=== PATIENT | male | born 1995 | race African-American/Black ===

== ENCOUNTER 2024-10-28 04:02 | Emergency (ER) | payer OTHER ==
[2024-10-28] MEDS ORDERED: Lidocaine 1% PF 5 ML VIAL ONE (04:34)
[2024-10-28] MEDS ORDERED: Boostrix 0.5 ML (Tdap) VIAL (>/=7 yrs of age) ONE (04:38)
[2024-10-28] MEDS ORDERED: Cephalexin 500 MG CAP ONE (04:48)
[2024-10-28] MEDS ORDERED: Bacitracin 1 PK ONE (04:48)
== END 2024-10-28 05:38 | disposition home or self-care (01) ==
LOC: MADERS 04:02
DX: S62.633A Displaced fracture of distal phalanx of left middle finger, initial encounter for closed fracture (principal); S62.661A Nondisplaced fracture of distal phalanx of left index finger, initial encounter for closed fracture; S66.109A Unspecified injury of flexor muscle, fascia and tendon of unspecified finger at wrist and hand level, initial encounter; S60.122A Contusion of left index finger with damage to nail, initial encounter; Z23 Encounter for immunization; W23.0XXA Caught, crushed, jammed, or pinched between moving objects, initial encounter; Y93.89 Activity, other specified; Y99.0 Civilian activity done for income or pay
CPT/HCPCS: 12001; 12041; 90471; 90715; J0665